=== PATIENT | female | born 1955 | race Hispanic/Latino ===

== ENCOUNTER 2017-09-19 15:09 | Outpatient (CLI) | payer BC | END 2017-09-19 15:10 | disposition home or self-care (01) | LOC: BICMAMMO 15:09 | PROVIDERS: ATTEND Family Medicine | DX: Z12.31 Encounter for screening mammogram for malignant neoplasm of breast (principal) | CPT/HCPCS: 77063; 77067 ==

== ENCOUNTER 2018-09-20 15:23 | Outpatient (CLI) | payer BC ==
--- NOTE | 2018-09-20 15:44 | MMO ---
Bilateral MAMMO Bilat Screen [facility]. CLINICAL HISTORY: Patient is 63 years old and is seen for screening. The patient has no family history of breast cancer. The patient has no personal history of cancer. VIEWS: The views performed were: bilateral craniocaudal with tomosynthesis and bilateral mediolateral oblique with tomosynthesis. FILMS COMPARED: The present examination has been compared to prior imaging studies performed at [facility] on 08/29/2014, 09/01/2015, 09/17/2016 and 09/19/2017. MAMMOGRAM FINDINGS: There are scattered fibroglandular densities. There are stable benign appearing calcifications seen in both breasts. There are also vascular calcifications. There are no suspicious masses, suspicious calcifications, or new areas of architectural distortion. IMPRESSION: THERE IS NO MAMMOGRAPHIC EVIDENCE OF MALIGNANCY. A ROUTINE FOLLOW-UP MAMMOGRAM IN 1 YEAR IS RECOMMENDED. THE RESULTS OF THIS EXAM WERE SENT TO THE PATIENT. ACR BI-RADS Category 2 - Benign finding MAMMOGRAPHY NOTE: 1. A negative mammogram report should not delay a biopsy if a dominant of clinically suspicious mass is present. 2. Approximately 10% to 15% of breast cancers are not detected by mammography. 3. Adenosis and dense breasts may obscure an underlying neoplasm.
== END 2018-09-20 15:24 | disposition home or self-care (01) ==
LOC: BICMAMMO 15:23
PROVIDERS: ATTEND Family Medicine
DX: Z12.31 Encounter for screening mammogram for malignant neoplasm of breast (principal)
CPT/HCPCS: 77063; 77067

== ENCOUNTER 2019-01-22 09:18 | Emergency (ER) | payer BC ==
[2019-01-22] MEDS ORDERED: Ketorolac Tromethamine 30 MG/ML VIAL ONE (11:21)
== END 2019-01-22 11:55 | disposition home or self-care (01) ==
LOC: ERS 09:18
DX: M54.5 Low back pain (principal); E11.9 Type 2 diabetes mellitus without complications; Z79.4 Long term (current) use of insulin
CPT/HCPCS: 96372; 99282; J1885

== ENCOUNTER 2019-10-05 08:49 | Outpatient (CLI) | payer BC ==
--- NOTE | 2019-10-05 11:49 | MMO ---
Bilateral MAMMO Bilat Screen [facility]. CLINICAL HISTORY: Patient is 64 years old and is seen for screening. The patient has no family history of breast cancer. The patient has no personal history of cancer. VIEWS: The views performed were: bilateral craniocaudal with tomosynthesis and bilateral mediolateral oblique with tomosynthesis. FILMS COMPARED: The present examination has been compared to prior imaging studies performed at [facility] on 09/01/2015, 09/17/2016, 09/19/2017 and 09/20/2018. This study has been interpreted with the assistance of computer-aided detection. MAMMOGRAM FINDINGS: There are scattered fibroglandular densities. Benign calcifications are noted bilaterally. There are no suspicious masses, suspicious calcifications, or new areas of architectural distortion. IMPRESSION: THERE IS NO MAMMOGRAPHIC EVIDENCE OF MALIGNANCY. A ROUTINE FOLLOW-UP MAMMOGRAM IN 1 YEAR IS RECOMMENDED. THE RESULTS OF THIS EXAM WERE SENT TO THE PATIENT. ACR BI-RADS Category 2 - Benign finding MAMMOGRAPHY NOTE: 1. A negative mammogram report should not delay a biopsy if a dominant of clinically suspicious mass is present. 2. Approximately 10% to 15% of breast cancers are not detected by mammography. 3. Adenosis and dense breasts may obscure an underlying neoplasm. Reported by: DAVID LORD MD Electonically Signed: [id number]
== END 2019-10-05 08:50 | disposition home or self-care (01) ==
LOC: BICMAMMO 08:49
PROVIDERS: ATTEND Family Medicine
DX: Z12.31 Encounter for screening mammogram for malignant neoplasm of breast (principal)
CPT/HCPCS: 77063; 77067

== ENCOUNTER 2020-02-15 14:51 | Outpatient (CLI) | payer BC ==
[2020-02-15] MEDS ORDERED: Iopamidol-370 76% 500 ML 1 ML ONE (15:10)
--- NOTE | 2020-02-15 15:44 | CT ---
CT ABDOMEN AND PELVIS WITH IV CONTRAST 02/15/2020 CLINICAL INFORMATION: Right lower quadrant abdominal wall mass. COMPARISON: None. Technique: Multiple contiguous axial CT images are obtained through the abdomen and pelvis with IV contrast. Cor onal reformatted images are provided. FINDINGS: Lower Chest: Vascular calcifications are seen in the coronary arteries. Lung bases are clear. Vessels: Vascular calcifications are seen. Abdomen: Portal vein:Patent Gallbladder: Within normal limits for CT imaging. Liver: within normal limits. Spleen: within normal limits. Pancreas: within normal limits. Adrenals: A 3.5 cm mass is associated with the right adrenal gland. This cannot be further characteri zed on this exam. Left adrenal gland has a normal CT appearance. Kidneys: within normal limits. Bowel: Small to moderate amount retained fecal material seen throughout the colon. Loops of small bow el are normal in caliber. Appendix: The appendix is visualized and normal in caliber. Peritoneum: No ascites or free air; no fluid collection. Mesentery and Retroperitoneum: No enlarged mesenteric or retroperitoneal lymph nodes. Abdominal Wall: There is scarring seen in the anterolateral aspects of the abdomen/upper pelvis bilat erally. Pelvis: Reproductive Organs: Evidence of hysterectomy. Bladder: Normal in appearance, the urinary bladder extends inferiorly to the level of the inferior as pect of the pubic bone. Bones: No suspicious lytic or sclerotic osseous lesions. IMPRESSION: 1. Right adrenal mass. CT scan following adrenal mass protocol with washout imaging versus MRI abdome n is recommended for further characterization of this right adrenal mass. This is larger in size than expected for a simple adrenal adenoma. 2. No abdominal wall mass or hernia is visualized corresponding to region of patient's palpable abnor mality. There is scarring involving the adipose soft tissues at the anterolateral aspects of the abdomen and upper pelvis 3. Evidence of hysterectomy. The base urinary bladder extends to the level of the inferior aspect of the pubic symphysis.
== END 2020-02-15 14:52 | disposition home or self-care (01) ==
LOC: BICCT 14:51
PROVIDERS: ATTEND Surgery
DX: R19.03 Right lower quadrant abdominal swelling, mass and lump (principal); D35.01 Benign neoplasm of right adrenal gland; Z90.710 Acquired absence of both cervix and uterus
CPT/HCPCS: 74177; 82565; Q9967

== ENCOUNTER 2020-10-07 13:52 | Outpatient (CLI) | payer BC | END 2020-10-07 13:53 | disposition home or self-care (01) | LOC: BICMAMMO 13:52 | PROVIDERS: ATTEND Family Medicine | DX: Z12.31 Encounter for screening mammogram for malignant neoplasm of breast (principal) | CPT/HCPCS: 77063; 77067 ==

== ENCOUNTER 2021-10-08 08:54 | Outpatient (CLI) | payer MEDICARE | END 2021-10-08 08:55 | disposition home or self-care (01) | LOC: BICMAMMO 08:54 | PROVIDERS: ATTEND Family Medicine | DX: Z12.31 Encounter for screening mammogram for malignant neoplasm of breast (principal) | CPT/HCPCS: 77063; 77067 ==

== ENCOUNTER 2022-10-27 14:02 | Outpatient (CLI) | payer MEDICARE | END 2022-10-27 14:03 | disposition home or self-care (01) | LOC: BICMAMMO 14:02 | PROVIDERS: ATTEND Family Medicine | DX: Z12.31 Encounter for screening mammogram for malignant neoplasm of breast (principal) | CPT/HCPCS: 77063; 77067 ==